=== PATIENT | female | born 1940 | race Caucasian/White ===

== ENCOUNTER 2019-01-01 19:01 | Emergency (ER) | payer MEDICARE ==
[~2019-01-01] VITALS: Ht 152.4 cm; Wt 70.2 kg
[~2019-01-01 19:01] MED LIST: ALBU8.5H8 INH; AMOX-419 PO; DILT30TA12 PO; DRON400T2 PO; ERGO500041 PO; HYDR-3972 PO; LORA-269 PO; PARO40TA PO; SIMV20TA PO; TOP100T PO
[2019-01-01 19:46] LABS: BASOPHILS % (AUTO) 0.5 % (0-1); EOSINOPHILS # (AUTO) 0.2 X10'3 (0-0.9); EOSINOPHILS % (AUTO) 1.9 % (0-6); HEMATOCRIT 43.8 % (35.0-45.0); HEMOGLOBIN 14.6 g/dl (12.0-16.0); LYMPHOCYTES # (AUTO) 1.6 X10'3 (1.1-4.8); LYMPHOCYTES % (AUTO) 19.7 % (21-51); MEAN CORPUSCULAR HEMOGLOBIN 31.1 PG (27.0-31.0); MEAN CORPUSCULAR HGB CONC 33.4 g/dL (33.0-36.5); MEAN CORPUSCULAR VOLUME 93.3 FL (78-98); MEAN PLATELET VOLUME 8.6 FL (7.4-10.4); MONOCYTES # (AUTO) 0.6 X10'3 (0-0.9); NEUTROPHILS # (AUTO) 5.6 X10'3 (1.8-7.7); NEUTROPHILS % (AUTO) 70.9 % (42-75); PLATELET COUNT 150 X10'3 (140-440); RED CELL DISTRIBUTION WIDTH 14.3 % (11.5-14.5)
[2019-01-01 19:53] LABS: PARTIAL THROMBOPLASTIN TIME 44 SECONDS (22-32)
[2019-01-01 20:04] LABS: ALANINE AMINOTRANSFERASE 15 U/L (12-78); ALBUMIN 3.3 G/DL (3.4-5.0); ALBUMIN/GLOBULIN RATIO 0.9 (1.1-1.5); ALKALINE PHOSPHATASE 99 IU/L (46-116); ANION GAP 9 (8-16); ASPARTATE AMINO TRANSFERASE 13 U/L (10-37); BILIRUBIN,TOTAL 0.4 MG/DL (0.1-1.0); BLOOD UREA NITROGEN 12 MG/DL (7-18); BUN/CREATININE RATIO 16.9 (6.6-38.0); CALCIUM 8.8 MG/DL (8.5-10.1); CHLORIDE 109 MMOL/L (99-107); CREATININE 0.71 MG/DL (0.40-0.90); GLUCOSE 121 MG/DL (70-104); SODIUM 142 MMOL/L (135-145); TOTAL CARBON DIOXIDE 24.2 MMOL/L (24-32); eGFR 79 ML/MIN
[2019-01-01] MEDS ORDERED: dexamethasone sod phosphate 10mg/ml inj IV STA (21:17)
[2019-01-01] MEDS ORDERED: ipratropium/albuterol 3ml nebule NEB ONE ×2 (21:20→23:00)
--- NOTE | 2019-01-01 22:54 | NUR ---
Patient is resting comfortably on gurney, she reports feeling better after the breathing treatment with less SOB. I can still hear wheezing and will continue to monitor.
[2019-01-02] MEDS ORDERED: DOXY100C2 PO (02:04)
[2019-01-02 02:30] VITALS: BP 143/87
== END 2019-01-02 02:33 | disposition home or self-care (01) ==
LOC: ER 19:02
DX: J44.1 Chronic obstructive pulmonary disease with (acute) exacerbation (principal); I48.91 Unspecified atrial fibrillation; E11.9 Type 2 diabetes mellitus without complications; F17.200 Nicotine dependence, unspecified, uncomplicated; Z98.890 Other specified postprocedural states; Z88.5 Allergy status to narcotic agent; Z79.899 Other long term (current) drug therapy
CPT/HCPCS: 36415; 71045; 80053; 83880; 84484; 85025; 85610; 85730; 93005; 94640; 94760; 96374; 99284; J1100

== ENCOUNTER 2019-05-10 12:16 | Emergency (ER) | payer MEDICARE ==
[~2019-05-10] VITALS: Ht 152.4 cm; Wt 74.8 kg
[2019-05-10] MEDS ORDERED: TETanus/Pertussis (Acell)/Diphther VAC/PF (Tdap-Adult) 0.5ml syringe IMVAC ONE (12:35)
[2019-05-10] MEDS ORDERED: LIDOcaine 1% W/epiNEPHrine 1:200,000 10ml vial IJ ONE (12:35)
[2019-05-10 12:55] LABS: BASOPHILS % (AUTO) 0.8 % (0-1); EOSINOPHILS # (AUTO) 0.2 X10'3 (0-0.9); EOSINOPHILS % (AUTO) 4.3 % (0-6); HEMATOCRIT 41.5 % (35.0-45.0); HEMOGLOBIN 13.6 g/dl (12.0-16.0); LYMPHOCYTES # (AUTO) 1.4 X10'3 (1.1-4.8); LYMPHOCYTES % (AUTO) 30.2 % (21-51); MEAN CORPUSCULAR HGB CONC 32.7 g/dL (33.0-36.5); MEAN CORPUSCULAR VOLUME 91.7 FL (78-98); MONOCYTES # (AUTO) 0.4 X10'3 (0-0.9); MONOCYTES % (AUTO) 8.5 % (2-12); NEUTROPHILS # (AUTO) 2.5 X10'3 (1.8-7.7); NEUTROPHILS % (AUTO) 56.2 % (42-75); PLATELET COUNT 135 X10'3 (140-440); RED BLOOD COUNT 4.52 X10'6 (4.20-5.60); RED CELL DISTRIBUTION WIDTH 14.4 % (11.5-14.5); WHITE BLOOD COUNT 4.5 X10'3 (4.5-11.0)
[2019-05-10 13:13] LABS: PARTIAL THROMBOPLASTIN TIME 46 SECONDS (22-32)
[2019-05-10 13:27] LABS: TOTAL CELLS COUNTED 100
[2019-05-10 13:28] LABS: PLATELET ESTIMATE DECREASED
[2019-05-10 13:32] LABS: ALANINE AMINOTRANSFERASE 24 U/L (12-78); ALBUMIN/GLOBULIN RATIO 0.9 (1.1-1.5); ALKALINE PHOSPHATASE 88 IU/L (46-116); ANION GAP 12 (8-16); ASPARTATE AMINO TRANSFERASE 18 U/L (10-37); BILIRUBIN,TOTAL 0.2 MG/DL (0.1-1.0); BLOOD UREA NITROGEN 11 MG/DL (7-18); BUN/CREATININE RATIO 15.1 (6.6-38.0); CALCIUM 8.4 MG/DL (8.5-10.1); CHLORIDE 112 MMOL/L (99-107); CREATININE 0.73 MG/DL (0.40-0.90); GLUCOSE 108 MG/DL (70-104); POTASSIUM 4.2 MMOL/L (3.5-5.1); SODIUM 150 MMOL/L (135-145); TOTAL CARBON DIOXIDE 26.5 MMOL/L (24-32); TOTAL PROTEIN 6.2 G/DL (6.4-8.2); eGFR 77 ML/MIN
--- NOTE | 2019-05-10 14:44 | NUR ---
AT BEDSIDE FOR SUTURING
[2019-05-10 15:31] VITALS: BP 141/84
== END 2019-05-10 15:33 | disposition home or self-care (01) ==
LOC: ER 12:17
DX: S01.81XA Laceration without foreign body of other part of head, initial encounter (principal); S09.90XA Unspecified injury of head, initial encounter; I48.91 Unspecified atrial fibrillation; J44.9 Chronic obstructive pulmonary disease, unspecified; E11.9 Type 2 diabetes mellitus without complications; F17.200 Nicotine dependence, unspecified, uncomplicated; R79.1 Abnormal coagulation profile; Z98.890 Other specified postprocedural states; W01.0XXA Fall on same level from slipping, tripping and stumbling without subsequent striking against object, initial encounter; Y93.89 Activity, other specified; Y92.89 Other specified places as the place of occurrence of the external cause; Y99.8 Other external cause status
CPT/HCPCS: 12013; 36415; 70450; 72125; 80053; 85007; 85025; 85610; 85730; 90471; 90715; 93005; 99284

== ENCOUNTER 2020-12-19 01:11 | Emergency (ER) | payer MEDICARE ==
[~2020-12-19] VITALS: Ht 157.5 cm; Wt 72.7 kg
[~2020-12-19 01:11] MED LIST changes: +ALBU8.5H17 INH; -ALBU8.5H8 INH; -DRON400T2 PO; +DRON400T7 PO
[2020-12-19 01:45] VITALS: BP 153/86
== END 2020-12-19 01:56 | disposition home or self-care (01) ==
LOC: ER 01:11
DX: S00.03XA Contusion of scalp, initial encounter (principal); S00.11XA Contusion of right eyelid and periocular area, initial encounter; S06.0X0A Concussion without loss of consciousness, initial encounter; M25.511 Pain in right shoulder; M79.601 Pain in right arm; I48.91 Unspecified atrial fibrillation; J44.9 Chronic obstructive pulmonary disease, unspecified; E11.9 Type 2 diabetes mellitus without complications; Z87.01 Personal history of pneumonia (recurrent); Z98.890 Other specified postprocedural states; Z88.5 Allergy status to narcotic agent; Z79.2 Long term (current) use of antibiotics; Z79.899 Other long term (current) drug therapy; W18.30XA Fall on same level, unspecified, initial encounter; Y93.89 Activity, other specified; Y92.89 Other specified places as the place of occurrence of the external cause; Y99.8 Other external cause status
CPT/HCPCS: 70450; 72125; 93005; 99285

== ENCOUNTER 2021-01-06 11:29 | Emergency (ER) | payer MEDICARE ==
[~2021-01-06] VITALS: Ht 154.9 cm; Wt 68.2 kg
[2021-01-06 12:36] LABS: BASOPHILS % (AUTO) 0.1 % (0-1); EOSINOPHILS % (AUTO) 0.1 % (0-6); HEMATOCRIT 41.1 % (35.0-45.0); HEMOGLOBIN 13.7 g/dl (12.0-16.0); LYMPHOCYTES # (AUTO) 0.6 X10'3 (1.1-4.8); LYMPHOCYTES % (AUTO) 5.8 % (21-51); MEAN CORPUSCULAR HEMOGLOBIN 30.6 PG (27.0-31.0); MEAN CORPUSCULAR HGB CONC 33.3 g/dL (33.0-36.5); MEAN PLATELET VOLUME 9.3 FL (7.4-10.4); MONOCYTES # (AUTO) 0.9 X10'3 (0-0.9); MONOCYTES % (AUTO) 8.7 % (2-12); NEUTROPHILS # (AUTO) 8.6 X10'3 (1.8-7.7); NEUTROPHILS % (AUTO) 85.3 % (42-75); PLATELET COUNT 264 X10'3 (140-440); RED BLOOD COUNT 4.47 X10'6 (4.20-5.60); RED CELL DISTRIBUTION WIDTH 13.2 % (11.5-14.5); WHITE BLOOD COUNT 10.1 X10'3 (4.5-11.0)
[2021-01-06 12:51] LABS: ALANINE AMINOTRANSFERASE 16 U/L (12-78); ALBUMIN 2.5 G/DL (3.4-5.0); ALBUMIN/GLOBULIN RATIO 0.5 (1.1-1.5); ALKALINE PHOSPHATASE 101 IU/L (46-116); ANION GAP 13 (8-16); ASPARTATE AMINO TRANSFERASE 16 U/L (10-37); BILIRUBIN,TOTAL 0.6 MG/DL (0.1-1.0); BLOOD UREA NITROGEN 14 MG/DL (7-18); BUN/CREATININE RATIO 18.2 (6.6-38.0); C-REACTIVE PROTEIN 15.67 MG/DL (0.0-0.5); CALCIUM 9.1 MG/DL (8.5-10.1); CHLORIDE 100 MMOL/L (99-107); CREATININE 0.77 MG/DL (0.40-0.90); GLUCOSE 365 MG/DL (70-104); LACTATE DEHYDROGENASE 172 U/L (81-234); POTASSIUM 3.9 MMOL/L (3.5-5.1); SODIUM 138 MMOL/L (135-145); TOTAL CARBON DIOXIDE 25.1 MMOL/L (24-32); TOTAL PROTEIN 7.1 G/DL (6.4-8.2); eGFR 72 ML/MIN
[2021-01-06] MEDS ORDERED: normal saline 500ml IV soln 500 ML IV ONE (13:05)
[2021-01-06] MEDS ORDERED: CASIRIVIMAB/IMDEVIMAB inject. 10 ML in normal saline 100ml IV soln 100 ML IV ONE (13:10)
[2021-01-06] MEDS ORDERED: BENZ-16 PO (14:16)
[2021-01-06] MEDS ORDERED: ONDA4TAB6 PO (14:16)
--- NOTE | 2021-01-06 14:38 | NUR ---
NOTIFIED MAURICIO VAUGHAN THAT PT WAS UP TO USE BEDSIDECOMMODE WAS EXTREMELY SOB ,PT HR IN 120-130'S IN AFIB AFTER GETTING TO BED AND PT HAS HX OF AFIB PER PROVIDER ITS PT BASELINE LINE AND HAS EXTENSIVE HX AND OKAY TO D/C THE PT.
--- NOTE | 2021-01-06 14:45 | NUR ---
CALL SKYE AT [phone] FOR D/C RIDE BACK HOME.
--- NOTE | 2021-01-06 14:49 | NUR ---
Rec'd referral for H/H requested by family. H/H attestation completed and given to dc planning. Continue to monitor.
[2021-01-06 15:15] VITALS: BP 165/98
== END 2021-01-06 15:32 | disposition home or self-care (01) ==
LOC: ER 11:31
DX: U07.1 COVID-19 (principal); J44.9 Chronic obstructive pulmonary disease, unspecified; I48.91 Unspecified atrial fibrillation; E11.9 Type 2 diabetes mellitus without complications; Z87.01 Personal history of pneumonia (recurrent); Z79.2 Long term (current) use of antibiotics; Z79.899 Other long term (current) drug therapy; Z88.8 Allergy status to other drugs, medicaments and biological substances
CPT/HCPCS: 36415; 71045; 80053; 83615; 84145; 85025; 86140; 87635; 99284; C9803; J7040; M0243; Q0244

== ENCOUNTER 2021-02-23 16:20 | Inpatient (IN) | payer MEDICARE ==
[~2021-02-23] VITALS: Ht 152.4 cm; Wt 84.1 kg
[~2021-02-23 16:20] MED LIST changes: +ONDA4TAB6 PO
[2021-02-23 18:07] LABS: BASOPHILS % (AUTO) 0.3 % (0-1); EOSINOPHILS # (AUTO) 0.1 X10'3 (0-0.9); HEMATOCRIT 38.9 % (35.0-45.0); HEMOGLOBIN 12.9 g/dl (12.0-16.0); LYMPHOCYTES # (AUTO) 1.2 X10'3 (1.1-4.8); LYMPHOCYTES % (AUTO) 21.8 % (21-51); MEAN CORPUSCULAR HEMOGLOBIN 30.1 PG (27.0-31.0); MEAN CORPUSCULAR HGB CONC 33.1 g/dL (33.0-36.5); MEAN CORPUSCULAR VOLUME 90.8 FL (78-98); MEAN PLATELET VOLUME 8.9 FL (7.4-10.4); MONOCYTES # (AUTO) 0.4 X10'3 (0-0.9); MONOCYTES % (AUTO) 7.8 % (2-12); NEUTROPHILS # (AUTO) 3.7 X10'3 (1.8-7.7); NEUTROPHILS % (AUTO) 68.1 % (42-75); PLATELET COUNT 190 X10'3 (140-440); RED BLOOD COUNT 4.28 X10'6 (4.20-5.60); RED CELL DISTRIBUTION WIDTH 14.5 % (11.5-14.5); WHITE BLOOD COUNT 5.4 X10'3 (4.5-11.0)
[2021-02-23 18:11] LABS: CLARITY,URINE CLOUDY (Clear); COLOR,URINE YELLOW (Yellow); PH,URINE 7.5 (4.8-8.0); UA COLLECTION TYPE CLN CATCH MIDSTREAM
[2021-02-23 18:12] LABS: GLUCOSE, URINE >=1000 mg/dl (Neg); KETONES,URINE NEGATIVE (Neg); LEUKOCYTE ESTERASE ,URINE TRACE (Neg); NITRITES, URINE NEGATIVE (Neg); OCCULT BLOOD,URINE SMALL (Neg); PROTEIN,URINE NEGATIVE (Neg); UROBILINOGEN,URINE 0.2 E.U/dL (0.2-1.0)
[2021-02-23 18:26] LABS: ALANINE AMINOTRANSFERASE 18 U/L (12-78); ALBUMIN 2.4 G/DL (3.4-5.0); ALBUMIN/GLOBULIN RATIO 0.5 (1.1-1.5); ALKALINE PHOSPHATASE 102 IU/L (46-116); ANION GAP 7 (8-16); ASPARTATE AMINO TRANSFERASE 15 U/L (10-37); BILIRUBIN,TOTAL 0.5 MG/DL (0.1-1.0); BLOOD UREA NITROGEN 13 MG/DL (7-18); BUN/CREATININE RATIO 15.1 (6.6-38.0); CALCIUM 9.2 MG/DL (8.5-10.1); CHLORIDE 100 MMOL/L (99-107); CREATININE 0.86 MG/DL (0.40-0.90); SODIUM 135 MMOL/L (135-145); TOTAL CARBON DIOXIDE 28.4 MMOL/L (24-32); TOTAL PROTEIN 7.1 G/DL (6.4-8.2); eGFR 63 ML/MIN
[2021-02-23 18:32] LABS: GLUCOSE 461 MG/DL (70-104)
[2021-02-23 18:41] LABS: BACTERIA,URINE 2+ /HPF (Neg); MUCUS STRANDS MODERATE /LPF (Neg); SQUAMOUS EPITHELIAL CELL,UR MODERATE /LPF (FEW); WBC CLUMPS,URINE FEW /HPF (NEGATIVE)
[2021-02-23 18:42] LABS: YEAST MODERATE /HPF (NEGATIVE)
[2021-02-23] MEDS ORDERED: temazepam 15mg capsule PO PRN (21:00)
[2021-02-23] MEDS ORDERED: CefTRIAXone 2gm/D5W 50ml BAG 50 ML IV ONE (22:40)
[2021-02-23] MEDS ORDERED: normal saline 1000ml 1,000 ML IV ONE (22:40)
[2021-02-23 23:29] LABS: PARTIAL THROMBOPLASTIN TIME 25 SECONDS (22-32)
[2021-02-23] MEDS ORDERED: bisacodyl 10mg suppository rectal RC PRN (23:40)
[2021-02-23] MEDS ORDERED: ondansetron/PF 4mg/2ml inj IV PRN (23:40)
[2021-02-23] MEDS ORDERED: HYDROcodone/acetaminophen 5mg/325mg tablet PO PRN (23:40)
[2021-02-23] MEDS ORDERED: diphenhydrAMINE 50 mg/ml inj IV PRN (23:40)
[2021-02-23] MEDS ORDERED: acetaminophen 650mg rectal suppository RC PRN (23:40)
[2021-02-23] MEDS ORDERED: morphine 2 MG/ML inj. syringe IV PRN (23:40)
[2021-02-23] MEDS ORDERED: ondansetron 4mg rapidly disintigrating tab PO PRN (23:40)
[2021-02-23] MEDS ORDERED: acetaminophen 325mg tablet PO PRN ×2 (23:40)
[2021-02-23] MEDS ORDERED: mag hydrox/Alum hydrox/simeth 30ml oral suspension PO PRN (23:40)
[2021-02-23] MEDS ORDERED: magnesium hydroxide 30ml (MOM) UD suspension PO PRN (23:40)
[2021-02-23] MEDS ORDERED: diphenhydrAMINE 25mg capsule PO PRN (23:40)
[2021-02-23] MEDS ORDERED: MESSAGE TO PHARMACY PO ONE (23:45)
[2021-02-23] MEDS ORDERED: dextrose 50%-water 50ml dispensing syringe IV PRN ×2 (23:45)
[2021-02-23] MEDS ORDERED: dextrose ORAL solution 15 GM/59 ML bottle PO PRN ×2 (23:45)
[2021-02-23] MEDS ORDERED: glucagon, human recombinant 1mg kit SUBCUT PRN (23:45)
[2021-02-24 00:03] LABS: HEMOGLOBIN A1C 12.2 % (4.5-6.2)
[2021-02-24 00:09] LABS: MAGNESIUM 1.9 MG/DL (1.5-2.4); PHOSPHORUS 2.4 MG/DL (2.3-4.5)
[2021-02-24] MEDS ORDERED: LEVO500T90 PO (00:18)
[2021-02-24] MEDS ORDERED: ERGO500054 PO (00:18)
[2021-02-24] MEDS ORDERED: DIPH-522 PO (00:18)
[2021-02-24] MEDS ORDERED: FURO20TA4 PO (00:18)
[2021-02-24] MEDS ORDERED: WARF-55 PO (00:18)
[2021-02-24] MEDS ORDERED: DILT30TA2 PO (00:18)
[2021-02-24] MEDS ORDERED: ALEN70TA37 PO (00:18)
[2021-02-24] MEDS ORDERED: TOP100T PO ×2 (00:18→00:19)
[2021-02-24] MEDS ORDERED: SIMV-42 PO (00:18)
[2021-02-24] MEDS ORDERED: FLUT1BLS4 INH (00:18)
[2021-02-24] MEDS ORDERED: DRON400T6 PO (00:18)
[2021-02-24] MEDS ORDERED: PARO40TA4 PO (00:18)
[2021-02-24] MEDS ORDERED: ALBU8HFA IH (00:19)
[2021-02-24] MEDS ORDERED: CLON-568 PO (00:19)
[2021-02-24 01:34] LABS: BASOPHILS % (AUTO) 0.6 % (0-1); EOSINOPHILS # (AUTO) 0.2 X10'3 (0-0.9); EOSINOPHILS % (AUTO) 3.2 % (0-6); HEMATOCRIT 38.1 % (35.0-45.0); HEMOGLOBIN 12.8 g/dl (12.0-16.0); LYMPHOCYTES # (AUTO) 1.1 X10'3 (1.1-4.8); LYMPHOCYTES % (AUTO) 21.9 % (21-51); MEAN CORPUSCULAR HEMOGLOBIN 30.4 PG (27.0-31.0); MEAN CORPUSCULAR HGB CONC 33.6 g/dL (33.0-36.5); MEAN CORPUSCULAR VOLUME 90.6 FL (78-98); MEAN PLATELET VOLUME 8.7 FL (7.4-10.4); MONOCYTES # (AUTO) 0.4 X10'3 (0-0.9); MONOCYTES % (AUTO) 8.4 % (2-12); NEUTROPHILS # (AUTO) 3.2 X10'3 (1.8-7.7); NEUTROPHILS % (AUTO) 65.9 % (42-75); PLATELET COUNT 176 X10'3 (140-440); RED BLOOD COUNT 4.21 X10'6 (4.20-5.60); RED CELL DISTRIBUTION WIDTH 14.2 % (11.5-14.5); WHITE BLOOD COUNT 4.8 X10'3 (4.5-11.0)
[2021-02-24 01:54] LABS: ANION GAP 6 (8-16); BILIRUBIN,TOTAL 0.4 MG/DL (0.1-1.0); BLOOD UREA NITROGEN 10 MG/DL (7-18); BUN/CREATININE RATIO 13.7 (6.6-38.0); CALCIUM 8.5 MG/DL (8.5-10.1); CHLORIDE 105 MMOL/L (99-107); CREATININE 0.73 MG/DL (0.40-0.90); GLUCOSE 383 MG/DL (70-104); POTASSIUM 3.8 MMOL/L (3.5-5.1); SODIUM 139 MMOL/L (135-145); TOTAL CARBON DIOXIDE 28.5 MMOL/L (24-32); TOTAL PROTEIN 6.7 G/DL (6.4-8.2); eGFR 76 ML/MIN
[2021-02-24 01:55] LABS: ALANINE AMINOTRANSFERASE 13 U/L (12-78); ALBUMIN 2.2 G/DL (3.4-5.0); ALBUMIN/GLOBULIN RATIO 0.5 (1.1-1.5); ALKALINE PHOSPHATASE 89 IU/L (46-116); ASPARTATE AMINO TRANSFERASE 16 U/L (10-37); CHOL/HDL RATIO 2.6 (0.00-4.99); CHOLESTEROL 93 MG/DL (0-200); HDL CHOLESTEROL 36 MG/DL (35-60); LDL CHOLESTEROL 38 MG/DL (50-100); TRIGLYCERIDES 123 MG/DL (20-135)
[2021-02-24] MEDS ORDERED: diphenoxylate/atropine tablet (Lomotil) PO PRN (02:10)
[2021-02-24] MEDS ORDERED: albuterol 2.5 MG/3 ML nebule NEB PRN (02:10)
[2021-02-24] MEDS: normal saline 1000ml 1,000 ML IV SCH ×3 (02:29→19:47)
--- NOTE | 2021-02-24 02:45 | NUR ---
Received report from [employer] Feeder . Patient to follow shortly.
--- NOTE | 2021-02-24 03:05 | NUR ---
Patient arrived to floor at 0305. Patient transferred to bed from [facility] with 2 person assist. VS initiated and 2 RN skin check completed. Patient in no distress at this time.
[2021-02-24 03:10] VITALS: BP 141/67
--- NOTE | 2021-02-24 06:00 | NUR ---
Patient in room [facility] 346. I have received report from HERMES Hess and had the opportunity to ask questions and assume patient care.
--- NOTE | 2021-02-24 06:20 | NUR ---
Patient in room [facility] 346. I have received report from Lyudmila MIRZA and had the opportunity to ask questions and assume patient care.
--- NOTE | 2021-02-24 06:49 | NUR ---
Report given to Hortencia MIRZA and psychiatric nursing aide Marilin.
[2021-02-24 07:00] VITALS: BP 128/84
[2021-02-24] MEDS ORDERED: heparin, porcine 5000 units/ml vial SQ SCH (08:00)
[2021-02-24] MEDS: docusate sod 100mg capsule PO SCH ×2 (08:00→20:00)
[2021-02-24] MEDS: Fluticasone/Umeclidin/Vilanter (Trelegy Ellipta 100-62.5-25) IH SCH (08:00)
--- NOTE | 2021-02-24 08:00 | NUR ---
Student documentation: I have reviewed and agree with all interventions, assessments performed and documented by Kayla Garcia Student.
--- NOTE | 2021-02-24 08:22 | NUR ---
PAGER ID: [phone] MESSAGE: Yolanda [id number]- Pt has no diet order. Can I put in a CC/HH diet for her? Thank you. Hortencia [facility] [id number]
[2021-02-24] MEDS: CefTRIAXone/D5W-Rocephin 1gm 50 ML IV SCH (08:23)
[2021-02-24] MEDS: pantoprazole 40mg Tablet.DR PO SCH (08:23)
[2021-02-24] MEDS: PARoxetine 20mg tablet PO SCH (08:24)
[2021-02-24] MEDS: diltiazem 30mg tablet PO SCH ×3 (08:24→21:00)
[2021-02-24] MEDS: dronedarone hcl 400mg tablet PO SCH ×2 (08:25→20:00)
[2021-02-24] MEDS ORDERED: magnesium 4gm in 100ml NS 100 ML IV PRN (09:25)
[2021-02-24] MEDS ORDERED: potassium Cl 20 mEq SR tablet PO PRN ×2 (09:25)
[2021-02-24] MEDS ORDERED: potassium Cl 40MEQ/1/2NS 520ml 520 ML IV PRN (09:25)
[2021-02-24] MEDS ORDERED: magnesium Cl slow-release 64mg tablet PO PRN (09:25)
[2021-02-24] MEDS: topiramate 100mg tablet PO SCH ×2 (10:40→20:00)
[2021-02-24 11:36] VITALS: BP 148/84
--- NOTE | 2021-02-24 12:04 | NUR ---
PAGER ID: [phone] MESSAGE: Trini Balbuena [id number]- Pt would like some breathing treatments and cough medication. FYI- transfer order done, PCU does not have a time as of when she will go there. Thank you Hortencia Queen [id number]
[2021-02-24] MEDS ORDERED: ipratropium/albuterol 3ml nebule NEB PRN (12:20)
[2021-02-24] MEDS ORDERED: benzonatate 100mg capsule PO PRN (12:20)
--- NOTE | 2021-02-24 12:29 | NUR ---
Malnutrition consult: Pt admitted w/ increasing confusion and found to have UTI, also new onset Diabetes w/ A1C 12.2. Pt states she has had a decreased appetite over the last 4 months and has lost some wt but is unsure of how much. Pt is unsure of her usual wt but states her clothes are more loose now. No reliable scaled wt hx in EMR, however current chair scale wt of 84kg is heaviest of previous admit wts. No visible signs of muscle or fat wasting observed at bedside. No edema noted. At this time pt does not meet minimum criteria for malnutrition. Pt currently on CCHO/HH diet pending PO though Heart Healthy diet not indicated at this time given geriatric age and lipid panel WNL except for low LDL. Provided pt w/ written and verbal DM education w/ RD contact info. [facility] 02/23 receiving routine colace. No nutrition intervention implemented at this time, will continue to monitor. Recs: 1. Continue CCHO diet, d/c Heart Healthy if MD agreeable 2. Monitor need for ONS pending further PO 3. Bowel care per rx 4. Weekly wt Addendum: 02/24/21 at [address] Amended: Links added.
[2021-02-24] MEDS: nystatin 15 GM powder TP SCH ×2 (13:02→21:00)
[2021-02-24] MEDS: insulin Lispro (HumaLOG) vial - multi-dose SQ SCH ×2 (13:04→22:55)
[2021-02-24] MEDS ORDERED: methylPREDNISolone sod succ 125mg/2ml vial IV ONE (14:50)
[2021-02-24] MEDS ORDERED: iohexol 350MG/ML 100ml bottle IV ONE (15:00)
--- NOTE | 2021-02-24 15:08 | NUR ---
DM consult: Patient's A1c has already been addressed by RD, see below. Malnutrition consult: Pt admitted w/ increasing confusion and found to have UTI, also new onset Diabetes w/ A1C 12.2. Pt states she has had a decreased appetite over the last 4 months and has lost some wt but is unsure of how much. Pt is unsure of her usual wt but states her clothes are more loose now. No reliable scaled wt hx in EMR, however current chair scale wt of 84kg is heaviest of previous admit wts. No visible signs of muscle or fat wasting observed at bedside. No edema noted. At this time pt does not meet minimum criteria for malnutrition. Pt currently on CCHO/HH diet pending PO though Heart Healthy diet not indicated at this time given geriatric age and lipid panel WNL except for low LDL. Provided pt w/ written and verbal DM education w/ RD contact info. [facility] 02/23 receiving routine colace. No nutrition intervention implemented at this time, will continue to monitor. Recs: 1. Continue CCHO diet, d/c Heart Healthy if MD agreeable 2. Monitor need for ONS pending further PO 3. Bowel care per rx 4. Weekly wt Addendum: 02/24/21 at [address] Amended: Links added.
[2021-02-24] MEDS: azithromycin 250mg tablet PO SCH (15:43)
--- NOTE | 2021-02-24 17:10 | NUR ---
Patient in room [facility] 346. I have received report from Edyta MIRZA and had the opportunity to ask questions in preparation to assume patient care when pt transferred to room 3022X.
--- NOTE | 2021-02-24 17:17 | NUR ---
Problems reprioritized. Patient report given, questions answered & plan of care reviewed with Alma MIRZA PCU nurse Traveler.
--- NOTE | 2021-02-24 17:45 | NUR ---
Transferring pt to PCU from surgical. Pt A & o x4. Report given to Alma MIRZA in PCU.
--- NOTE | 2021-02-24 17:48 | NUR ---
Pt's Daughter: ranting and raving at the nurses station then in the room shaking advanced directive at her mom, yelling about her family disagreements and why she can not go home and her mother can not talk to anyone else in the family. Daughter demanding that she be the only one on her moms list to receive information. Pt alert and oriented x4 and agree to giving her granddaughter information and other family members on SBAR. Daughter appears under the influence of drugs and encouraged to leave for the night so the staff can focus on taking care of her mother. pt left the room, ranted at the nurses station for a minute (refusing to wear mask) before volunteering on her own that she did not need security and she was leaving.
--- NOTE | 2021-02-24 18:30 | NUR ---
Problems reprioritized. Patient report given, questions answered & plan of care reviewed with Delia MIRZA. pt alert and oriented, sitting up in bed receiving Echo.
[2021-02-24] MEDS: topiramate 25mg tablet PO SCH (20:00)
[2021-02-24] MEDS: K and/or MAG REPLACEMENT MC SCH (20:03)
[2021-02-24] MEDS ORDERED: warfarin 5mg tablet PO ONE (21:00)
[2021-02-24] MEDS ORDERED: warfarin 5mg tablet PO SCH (21:00)
[2021-02-24] MEDS: atorvastatin 10mg tablet PO SCH (21:00)
[2021-02-25] MEDS: normal saline 1000ml 1,000 ML IV SCH ×2 (05:40→18:45)
[2021-02-25 06:21] LABS: BASOPHILS % (AUTO) 0.1 % (0-1); EOSINOPHILS % (AUTO) 0 % (0-6); HEMATOCRIT 38.3 % (35.0-45.0); HEMOGLOBIN 12.6 g/dl (12.0-16.0); LYMPHOCYTES # (AUTO) 0.7 X10'3 (1.1-4.8); LYMPHOCYTES % (AUTO) 12.4 % (21-51); MEAN CORPUSCULAR HEMOGLOBIN 29.9 PG (27.0-31.0); MEAN CORPUSCULAR VOLUME 90.6 FL (78-98); MEAN PLATELET VOLUME 8.9 FL (7.4-10.4); MONOCYTES # (AUTO) 0.1 X10'3 (0-0.9); MONOCYTES % (AUTO) 1.3 % (2-12); NEUTROPHILS # (AUTO) 5.1 X10'3 (1.8-7.7); NEUTROPHILS % (AUTO) 86.2 % (42-75); PLATELET COUNT 194 X10'3 (140-440); RED BLOOD COUNT 4.23 X10'6 (4.20-5.60); RED CELL DISTRIBUTION WIDTH 14.7 % (11.5-14.5)
[2021-02-25 06:38] LABS: ANION GAP 8 (8-16); BLOOD UREA NITROGEN 14 MG/DL (7-18); BUN/CREATININE RATIO 21.2 (6.6-38.0); CALCIUM 8.5 MG/DL (8.5-10.1); CHLORIDE 105 MMOL/L (99-107); CREATININE 0.66 MG/DL (0.40-0.90); GLUCOSE 353 MG/DL (70-104); POTASSIUM 4.1 MMOL/L (3.5-5.1); SODIUM 140 MMOL/L (135-145); TOTAL CARBON DIOXIDE 26.7 MMOL/L (24-32); eGFR 86 ML/MIN
[2021-02-25 06:39] LABS: ALANINE AMINOTRANSFERASE 16 U/L (12-78); ALBUMIN 2.3 G/DL (3.4-5.0); ALBUMIN/GLOBULIN RATIO 0.6 (1.1-1.5); ALKALINE PHOSPHATASE 72 IU/L (46-116); ASPARTATE AMINO TRANSFERASE 10 U/L (10-37); BILIRUBIN,TOTAL 0.4 MG/DL (0.1-1.0); MAGNESIUM 1.8 MG/DL (1.5-2.4); PHOSPHORUS 3.5 MG/DL (2.3-4.5); TOTAL PROTEIN 6.4 G/DL (6.4-8.2)
[2021-02-25 07:14] VITALS: BP 118/81
[2021-02-25] MEDS: pantoprazole 40mg Tablet.DR PO SCH (07:30)
[2021-02-25] MEDS: Fluticasone/Umeclidin/Vilanter (Trelegy Ellipta 100-62.5-25) IH SCH (08:00)
[2021-02-25] MEDS: docusate sod 100mg capsule PO SCH ×2 (08:00→20:00)
[2021-02-25] MEDS: K and/or MAG REPLACEMENT MC SCH ×2 (08:00→20:00)
[2021-02-25] MEDS: nystatin 15 GM powder TP SCH ×3 (08:00→21:11)
[2021-02-25] MEDS: dronedarone hcl 400mg tablet PO SCH ×2 (08:49→21:09)
[2021-02-25] MEDS: diltiazem 30mg tablet PO SCH ×3 (08:49→21:09)
[2021-02-25] MEDS: topiramate 100mg tablet PO SCH ×2 (08:49→21:09)
[2021-02-25] MEDS: azithromycin 250mg tablet PO SCH (08:49)
[2021-02-25] MEDS: CefTRIAXone/D5W-Rocephin 1gm 50 ML IV SCH (08:50)
[2021-02-25] MEDS: prednisone 10mg tablet PO SCH (08:50)
[2021-02-25] MEDS: PARoxetine 20mg tablet PO SCH (08:50)
[2021-02-25] MEDS: insulin Lispro (HumaLOG) vial - multi-dose SQ SCH ×4 (09:17→22:04)
[2021-02-25 11:00] VITALS: BP 142/78
[2021-02-25] MEDS: fluconazole 100mg tablet PO SCH ×2 (13:25→21:09)
[2021-02-25 15:00] VITALS: BP 140/74
[2021-02-25 18:30] VITALS: BP 141/79
[2021-02-25] MEDS ORDERED: warfarin 3mg tablet PO ONE (21:00)
[2021-02-25] MEDS ORDERED: warfarin 10mg tablet PO ONE (21:00)
[2021-02-25] MEDS: topiramate 25mg tablet PO SCH (21:09)
[2021-02-25] MEDS: atorvastatin 10mg tablet PO SCH (21:09)
[2021-02-25 22:00] VITALS: BP 138/78
[2021-02-25] MEDS ORDERED: insulin glargine (Lantus) pen - multi-dose SQ ONE (22:10)
[2021-02-26] MEDS: normal saline 1000ml 1,000 ML IV SCH ×2 (01:40→08:22)
[2021-02-26 02:00] VITALS: BP 148/87
[2021-02-26 06:00] VITALS: BP 142/102
--- NOTE | 2021-02-26 06:49 | NUR ---
Patient in room PCU 3027. I have received report from HERMES Carlisle and had the opportunity to ask questions and assume patient care.
[2021-02-26] MEDS: K and/or MAG REPLACEMENT MC SCH (08:00)
[2021-02-26] MEDS: pantoprazole 40mg Tablet.DR PO SCH (08:18)
[2021-02-26] MEDS: diltiazem 30mg tablet PO SCH (08:19)
[2021-02-26] MEDS: dronedarone hcl 400mg tablet PO SCH (08:19)
[2021-02-26] MEDS: azithromycin 250mg tablet PO SCH (08:19)
[2021-02-26] MEDS: docusate sod 100mg capsule PO SCH (08:20)
[2021-02-26] MEDS: PARoxetine 20mg tablet PO SCH (08:20)
[2021-02-26] MEDS: topiramate 100mg tablet PO SCH (08:20)
[2021-02-26] MEDS: fluconazole 100mg tablet PO SCH (08:20)
[2021-02-26] MEDS: prednisone 10mg tablet PO SCH (08:21)
[2021-02-26] MEDS: CefTRIAXone/D5W-Rocephin 1gm 50 ML IV SCH (08:21)
[2021-02-26] MEDS: nystatin 15 GM powder TP SCH (08:23)
[2021-02-26 08:43] LABS: BASOPHILS % (AUTO) 0.3 % (0-1); EOSINOPHILS % (AUTO) 0.5 % (0-6); HEMATOCRIT 36.9 % (35.0-45.0); HEMOGLOBIN 12.2 g/dl (12.0-16.0); LYMPHOCYTES # (AUTO) 1.5 X10'3 (1.1-4.8); LYMPHOCYTES % (AUTO) 23.6 % (21-51); MEAN CORPUSCULAR HEMOGLOBIN 30.1 PG (27.0-31.0); MEAN CORPUSCULAR HGB CONC 32.9 g/dL (33.0-36.5); MEAN CORPUSCULAR VOLUME 91.4 FL (78-98); MEAN PLATELET VOLUME 8.9 FL (7.4-10.4); MONOCYTES # (AUTO) 0.6 X10'3 (0-0.9); MONOCYTES % (AUTO) 9.2 % (2-12); NEUTROPHILS # (AUTO) 4.3 X10'3 (1.8-7.7); NEUTROPHILS % (AUTO) 66.4 % (42-75); PLATELET COUNT 194 X10'3 (140-440); RED BLOOD COUNT 4.04 X10'6 (4.20-5.60); RED CELL DISTRIBUTION WIDTH 14.5 % (11.5-14.5); WHITE BLOOD COUNT 6.5 X10'3 (4.5-11.0)
[2021-02-26 08:49] LABS: ALANINE AMINOTRANSFERASE 11 U/L (12-78); ALBUMIN 2.4 G/DL (3.4-5.0); ALBUMIN/GLOBULIN RATIO 0.6 (1.1-1.5); ALKALINE PHOSPHATASE 67 IU/L (46-116); ANION GAP 7 (8-16); ASPARTATE AMINO TRANSFERASE 17 U/L (10-37); BILIRUBIN,TOTAL 0.3 MG/DL (0.1-1.0); BLOOD UREA NITROGEN 16 MG/DL (7-18); BUN/CREATININE RATIO 29.6 (6.6-38.0); CALCIUM 8.7 MG/DL (8.5-10.1); CHLORIDE 109 MMOL/L (99-107); CREATININE 0.54 MG/DL (0.40-0.90); GLUCOSE 170 MG/DL (70-104); MAGNESIUM 2.2 MG/DL (1.5-2.4); PHOSPHORUS 2.9 MG/DL (2.3-4.5); SODIUM 145 MMOL/L (135-145); TOTAL CARBON DIOXIDE 29.1 MMOL/L (24-32); TOTAL PROTEIN 6.4 G/DL (6.4-8.2); eGFR > 90 ML/MIN
[2021-02-26 08:56] LABS: POTASSIUM 3.8 MMOL/L (3.5-5.1)
--- NOTE | 2021-02-26 09:04 | NUR ---
Reassessment: Pt w/ low PO intake on CCHO diet, avg 24% x 3 meals though missing 2 meals from documentation, overall not meeting needs. Pt may benefit from Ensure Enlive TID to assist w/ meeting needs. [facility] 02/25 receiving routine colace. Will continue to monitor. Recs: 1. Continue CCHO diet as tolerated 2. Ensure Enlive TID; pending MD approval 3. Bowel care per rx 4. Weekly wt Addendum: 02/26/21 at [address] Amended: Links added.
[2021-02-26] MEDS: insulin Lispro (HumaLOG) vial - multi-dose SQ SCH (09:36)
[2021-02-26] MEDS ORDERED: ALBU8.5H17 INH (10:14)
[2021-02-26] MEDS ORDERED: NYSPWD TP (10:14)
[2021-02-26] MEDS ORDERED: PRED10TA PO (10:14)
[2021-02-26] MEDS ORDERED: BUDE10.22 INH (10:14)
[2021-02-26] MEDS ORDERED: METF-1203 PO (10:14)
[2021-02-26] MEDS ORDERED: PANT40TA54 PO (10:14)
[2021-02-26] MEDS ORDERED: CEFD300C3 PO (10:14)
[2021-02-26] MEDS ORDERED: BENZ-69 PO (10:14)
[2021-02-26] MEDS ORDERED: LANTUS SQ (10:14)
== END 2021-02-26 12:15 | disposition home health service (06) | DRG 689 ==
LOC: ER 16:21 → UNDOADMIN 23:40 → ED HOLD 23:40 → SUR 3N 02-24 03:14 → ED HOLD 02-24 03:14 → PCU 3S 02-24 17:33
PROVIDERS: ADMIT Family Medicine; ATTEND Family Medicine
PROC: B32T1ZZ Computerized Tomography (CT Scan) of Left Pulmonary Artery using Low Osmolar Contrast (ICD-10-PCS; principal; 2021-02-24)
PROC: B3201ZZ Computerized Tomography (CT Scan) of Thoracic Aorta using Low Osmolar Contrast (ICD-10-PCS; 2021-02-24)
PROC: B32S1ZZ Computerized Tomography (CT Scan) of Right Pulmonary Artery using Low Osmolar Contrast (ICD-10-PCS; 2021-02-24)
DX: N39.0 Urinary tract infection, site not specified (principal); I50.33 Acute on chronic diastolic (congestive) heart failure; J44.1 Chronic obstructive pulmonary disease with (acute) exacerbation; J96.10 Chronic respiratory failure, unspecified whether with hypoxia or hypercapnia; S42.301K Unspecified fracture of shaft of humerus, right arm, subsequent encounter for fracture with nonunion; I11.0 Hypertensive heart disease with heart failure; I48.91 Unspecified atrial fibrillation; E66.9 Obesity, unspecified; E11.65 Type 2 diabetes mellitus with hyperglycemia; Z66 Do not resuscitate; E78.5 Hyperlipidemia, unspecified; F17.210 Nicotine dependence, cigarettes, uncomplicated; Z79.01 Long term (current) use of anticoagulants; Z86.16 Personal history of COVID-19; Z99.81 Dependence on supplemental oxygen; Z88.5 Allergy status to narcotic agent; Z79.899 Other long term (current) drug therapy; Z68.36 Body mass index [BMI] 36.0-36.9, adult
CPT/HCPCS: 36415; 71045; 71275; 73060; 80053; 80061; 81001; 82948; 83036; 83605; 83735; 83880; 84100; 84145; 84443; 84484; 85025; 85610; 85730; 87040; 87081; 87088; 93005; 93306; 94760; 97116; 97161; 97530; 99285; G0378; J0696; J1815; J2930; J7030; J7512; Q9967